=== PATIENT | female | born 1980 | race Caucasian/White ===

== ENCOUNTER 2023-05-09 01:22 | Emergency (ER) | payer MEDICAID ==
[~2023-05-09] VITALS: Ht 165.1 cm; Wt 75.0 kg
[2023-05-09 01:26] VITALS: BP 132/82; PULSE 94; RESP 18; TEMP 99.7; O2SAT 100
== END 2023-05-09 07:56 | disposition left against medical advice (07) ==
LOC: ER 02:05
DX: Z53.21 Procedure and treatment not carried out due to patient leaving prior to being seen by health care provider (principal)
CPT/HCPCS: 99281

== ENCOUNTER 2023-10-09 00:26 | Emergency (ER) | payer MEDICAID ==
[~2023-10-09] VITALS: Ht 165.1 cm; Wt 70.0 kg
[2023-10-09 00:29] VITALS: TEMP 98.3; O2SAT 99
[2023-10-09] MEDS: SODIUM CHLORIDE 0.9% 1,000 ML IV ONE (01:40)
[2023-10-09 03:30] LABS: BASOPHILS % 0.5 % (0.0-2.0); EOSINOPHILS % 2.8 % (0.0-5.0); HEMATOCRIT. 38.6 % (36.0-48.0); HEMOGLOBIN. 13.1 g/dL (12.0-16.0); LYMPHOCYTES % 28.8 % (20.0-50.0); MEAN CORPUSCULAR HEMOGLOBIN 28.6 pg (28.0-32.0); MEAN CORPUSCULAR HGB CONC 33.9 g/dL (31.0-37.0); MEAN CORPUSCULAR VOLUME 84.4 fL (81.0-99.0); MEAN PLATELET VOLUME 7.9 fl (7.4-10.4); MONOCYTES % 7.9 % (2.0-8.0); PLATELET 261 x1000/uL (130-400); RED BLOOD CELL COUNT 4.57 mill/uL (4.2-5.4); RED CELL DISTRIBUTION WIDTH 17.7 % (11.6-14.6); WHITE BLOOD COUNT 7.1 x1000/uL (4.5-11.0)
[2023-10-09 04:05] LABS: HCG SCREEN NEGATIVE
[2023-10-09 05:25] LABS: CHLORIDE 107 mEq/L (98-107); POTASSIUM 3.7 mEq/L (3.5-5.1); SODIUM 135 mEq/L (136-145)
[2023-10-09 05:26] LABS: CALCIUM 9.5 mg/dL (8.7-10.4); CARBON DIOXIDE 20 mEq/L (21-32)
[2023-10-09 05:31] LABS: CREATININE 0.8 mg/dL (0.6-1.0); GLUCOSE 314 mg/dL (70-105); UREA NITROGEN BLOOD 10 mg/dL (9-23)
[2023-10-09 05:48] LABS: BETA HYDROXYBUTYRATE 0.1 mMol/L (0.0-0.3)
[2023-10-09 06:49] VITALS: BP 114/71; PULSE 71; RESP 12
== END 2023-10-09 06:54 | disposition home or self-care (01) ==
LOC: ER 00:26
DX: E11.65 Type 2 diabetes mellitus with hyperglycemia (principal); I10 Essential (primary) hypertension
CPT/HCPCS: 99285; 96360; 71045; 80048; 82010; 84703; 83605; 83690; 85025; 36415; J7030